=== PATIENT | female | born 1980 | race Caucasian/White ===

== ENCOUNTER → 2018-08-30 14:39 | Outpatient (CLI) | payer SELFPAY ==
[2018-08-29 17:23] VITALS: BMI 33.5
== END ==
PROVIDERS: Family Provider Internal Medicine; PCP Internal Medicine; Referring Provider Physician Assistant; Visit Provider Physician Assistant
DX: R50.9 Fever, unspecified (principal)
CPT/HCPCS: 87081

== ENCOUNTER → 2019-03-27 18:02 | Outpatient (CLI) | payer SELFPAY ==
[2019-03-27 10:21] VITALS: BMI 33.5
[2019-03-31 12:42] LABS: HPV APTIMA, High Risk Negative (Negative)
== END ==
PROVIDERS: Referring Provider Obstetrics & Gynecology; Visit Provider Obstetrics & Gynecology
DX: Z12.4 Encounter for screening for malignant neoplasm of cervix (principal)
CPT/HCPCS: 87624; 88175; G0145

== ENCOUNTER → 2019-03-31 09:56 | Outpatient (CLI) | payer SELFPAY ==
[2019-03-27 10:21] VITALS: BMI 33.5
--- NOTE | 2019-03-31 10:16 | BI_ITS ---
MAMMOGRAPHY - BILATERAL SCREENING REASON FOR EXAM: Female, 38 years old. Routine annual screening examination. PERTINENT HISTORY: Non-contributory. TECHNIQUE: Digital bilateral breast debra (3D mammographic acquisition) in the CC and MLO projections. 2-D mediolateral oblique (MLO) and craniocaudad (CC) views of both breasts were obtained. CAD: Full Field Digital Mammography with Computer Added Detection was performed. COMPARISON: None. Baseline examination. FINDINGS: Breast Composition: The breasts are heterogeneously dense, which may obscure small masses. There are no dominant masses or suspicious calcifications. Small benign-appearing bilateral axillary No other significant abnormalities are identified. BI/SCREEN MAMM (CAD) W/DEBRA BILAT IMPRESSION: Negative screening mammogram. Yearly followup mammogram recommended. (A) ASSESSMENT CATEGORY: BIRADS Category 2: Benign. A letter regarding these results will be sent to the patient by the facility within 30 days. Approximately 10% of breast cancers are not detected by mammography. A normal mammogram should not delay biopsy of a clinically suspicious abnormality. [id number] Electronically Signed: Joe Núñez, at 11:25 EDT , Service support ,
== END ==
PROVIDERS: Referring Provider Obstetrics & Gynecology; Visit Provider Obstetrics & Gynecology
DX: Z12.31 Encounter for screening mammogram for malignant neoplasm of breast (principal)
CPT/HCPCS: 77063; 77067

== ENCOUNTER → 2020-05-06 | Outpatient (CLI) | payer SELFPAY ==
[2020-05-06 09:52] VITALS: BMI 33.5
[2020-05-06 10:54] LABS: Absolute Lymphocyte Count 2.37 X10^3/uL (0.83-4.51); Absolute Neutrophil Count 3.2 X10^3/uL (2.0-7.7); Basophil# 0.03 X10^3/uL; Basophil% 0.4 % (0-1); Eosinophil# 0.62 X10^3/uL; Eosinophils% 9.3 % (0-5); Hematocrit 42.1 % (37-47); Hemoglobin 13.6 g/dL (12.0-15.0); Lymphocyte # 2.37 X10^3/ul (4.0); Lymphocyte % 35.5 % (19-41); Mean Corp Hgb Conc 32.3 g/dL (32-36); Mean Corpuscular Volume 89.8 fL (81-99); Mean Platelet Vol. 9.1 fl (6.2-12.0); Monocyte# 0.42 X10^3/uL; Monocyte% 6.3 % (0-10); NRBC Flagged by Analyzer 0 % (0-5); Neutrophil # 3.22 X10^3/uL (2.7-7.7); Neutrophil % 48.2 % (47-70); Platelet Count 239 K/mm3 (150-450); RBC Distribution Width CV 12.3 % (11.6-14.6); RBC Distribution Width SD 39.9 fl (35.1-43.9); Red Blood Count 4.69 M/mm3 (4.2-5.4); White Blood Count 6.7 K/mm3 (4.4-11.0)
[2020-05-06 11:18] LABS: ALB/GLOB Ratio 1.1 RATIO (0.9-2.4); AST(SGOT) 22 U/L (15-37); Alanine Aminotransfer ALT/SGPT 32 U/L (13-56); Albumin, Serum 3.9 g/dL (3.2-5.0); Alkaline Phosphatase 57 U/L (45-117); Anion Gap 2 (5-15); BUN 16 mg/dL (7-18); BUN/Creat Ratio 20.8 RATIO (10-20); Calcium,Total 8.7 mg/dL (8.5-10.1); Chloride 104 mmol/L (98-107); Cholesterol 194 mg/dL (200); Creatinine, Serum 0.77 mg/dL (0.55-1.02); EST Glomerular Filtration Rate 88 mL/min (>60); Est Glom Filt Rate - Afr Amer 106 mL/min (>60); Globulin 3.7 g/dL (2.2-4.2); Glucose 91 mg/dL (74-106); High Density Lipoprotein 53 mg/dL; Potassium 3.6 mmol/L (3.5-5.1); Protein, Total 7.6 g/dL (6.4-8.2); Sodium Level 136 mmol/L (136-145); Thyroid Stim Hormone (TSH) 1.67 uIU/mL (0.358-3.74); Triglycerides 170 mg/dL; Very Low Density Lipoprotein 34 mg/dL (5-40)
[2020-05-08 08:15] LABS: Vitamin D,25 Hydroxy 27.2 ng/mL
== END | disposition home or self-care (01) ==
LOC: PAVLAB 10:43
PROVIDERS: Referring Provider Obstetrics & Gynecology; Visit Provider Obstetrics & Gynecology
DX: Z13.29 Encounter for screening for other suspected endocrine disorder (principal); Z13.21 Encounter for screening for nutritional disorder; Z13.220 Encounter for screening for lipoid disorders; Z01.419 Encounter for gynecological examination (general) (routine) without abnormal findings
CPT/HCPCS: 36415; 80053; 80061; 82306; 84443; 85025

== ENCOUNTER → 2020-06-17 11:15 | Outpatient (CLI) | payer SELFPAY ==
[2020-05-06 09:52] VITALS: BMI 33.5
--- NOTE | 2020-06-17 11:19 | BI_ITS ---
MAMMOGRAPHY - BILATERAL SCREENING REASON FOR EXAM: Female, 40 years old. Routine annual screening examination. PERTINENT HISTORY: Non-contributory. TECHNIQUE: Digital bilateral breast debra (3D mammographic acquisition) in the CC and MLO projections. 2-D mediolateral oblique (MLO) and craniocaudad (CC) views of both breasts were obtained. CAD: Full Field Digital Mammography with Computer Added Detection was performed. COMPARISON: Comparison is made with prior study dated 03/31/2019. FINDINGS: Breast Composition: The breasts are heterogeneously dense, which may obscure small masses. There are no dominant masses or suspicious calcifications. Stable small benign-appearing bilateral axillary lymph nodes. No other significant abnormalities are identified. There has been no significant change since the prior study. BI/SCREEN MAMM (CAD) W/DEBRA BILAT IMPRESSION: Stable bilateral screening mammogram. Yearly follow-up mammogram recommended. (A) ASSESSMENT CATEGORY: BIRADS Category 2: Benign. A letter regarding these results will be sent to the patient by the facility within 30 days. Approximately 10% of breast cancers are not detected by mammography. A normal mammogram should not delay biopsy of a clinically suspicious abnormality. [id number] Electronically Signed: Joe Núñez, at 12:21 EST , Service support ,
== END ==
PROVIDERS: Referring Provider Obstetrics & Gynecology; Visit Provider Obstetrics & Gynecology
DX: Z12.31 Encounter for screening mammogram for malignant neoplasm of breast (principal)
CPT/HCPCS: 77063; 77067

== ENCOUNTER → 2022-01-14 | Outpatient (CLI) | payer OTHER, SELFPAY ==
[2022-01-14 12:23] LABS: Absolute Lymphocyte Count 2.57 X10^3/uL (0.83-4.51); Absolute Neutrophil Count 3.8 X10^3/uL (2.0-7.7); Basophil# 0.04 X10^3/uL; Basophil% 0.5 % (0-1); Eosinophils% 6.7 % (0-5); Hematocrit 43.8 % (37-47); Hemoglobin 14.1 g/dL (12.0-15.0); Lymphocyte # 2.57 X10^3/ul (0.83-4.51); Lymphocyte % 34.6 % (19-41); Mean Corp Hgb Conc 32.2 g/dL (32-36); Mean Corpuscular Hgb 29.1 pg (27.0-32.0); Mean Corpuscular Volume 90.3 fL (81-99); Mean Platelet Vol. 10.2 fl (6.2-12.0); Monocyte% 6.7 % (0-10); NRBC Flagged by Analyzer 0 % (0-5); Neutrophil % 51.2 % (47-70); Platelet Count 262 K/mm3 (150-450); RBC Distribution Width CV 12.1 % (11.6-14.6); Red Blood Count 4.85 M/mm3 (4.2-5.4); White Blood Count 7.4 K/mm3 (4.4-11.0)
[2022-01-14 12:46] LABS: AST(SGOT) 16 U/L (15-37); Alanine Aminotransfer ALT/SGPT 28 U/L (13-56); Albumin, Serum 3.7 g/dL (3.2-5.0); Alkaline Phosphatase 58 U/L (45-117); Anion Gap 7 (5-15); BUN 15 mg/dL (7-18); BUN/Creat Ratio 19.4 RATIO (10-20); Calcium,Total 9.1 mg/dL (8.5-10.1); Chloride 104 mmol/L (98-107); Cholesterol 193 mg/dL (200); Creatinine, Serum 0.78 mg/dL (0.55-1.02); EST Glomerular Filtration Rate 86 mL/min (>60); Est Glom Filt Rate - Afr Amer 105 mL/min (>60); Globulin 3.7 g/dL (2.2-4.2); Glucose 92 mg/dL (74-106); High Density Lipoprotein 48 mg/dL; Potassium 4.1 mmol/L (3.5-5.1); Protein, Total 7.4 g/dL (6.4-8.2); Sodium Level 138 mmol/L (136-145); Triglycerides 127 mg/dL; Very Low Density Lipoprotein 25 mg/dL (5-40)
== END | disposition home or self-care (01) ==
LOC: BIMLAB 09:09
PROVIDERS: PCP Internal Medicine; Referring Provider Internal Medicine; Visit Provider Internal Medicine
DX: Z00.00 Encounter for general adult medical examination without abnormal findings (principal)
CPT/HCPCS: 36415; 80053; 80061; 85025

== ENCOUNTER → 2022-08-12 | Outpatient (CLI) | payer OTHER, SELFPAY ==
--- NOTE | 2022-08-12 09:37 | BI_ITS ---
MAMMOGRAPHY - BILATERAL SCREENING REASON FOR EXAM: Female, 42 years old. Routine annual screening examination. PERTINENT HISTORY: Non-contributory. TECHNIQUE: Digital bilateral breast debra (3D mammographic acquisition) in the CC and MLO projections. 2-D mediolateral oblique (MLO) and craniocaudad (CC) views of both breasts were obtained. CAD: Full Field Digital Mammography with Computer Added Detection was performed. COMPARISON: Comparison is made with prior study 06/17/2020 and 03/31/2019. FINDINGS: Breast Composition: The breasts are heterogeneously dense, which may obscure small masses. There are no dominant masses or suspicious calcifications. Stable small benign-appearing bilateral axillary lymph nodes. No other significant abnormalities are identified. There has been no significant change since the prior study. BI/SCRN MAMM (CAD)W/DEBRA BILAT IMPRESSION: Stable bilateral screening mammogram. Yearly follow-up mammogram recommended. (A) ASSESSMENT CATEGORY: BIRADS Category 2: Benign. A letter regarding these results will be sent to the patient by the facility within 30 days. Approximately 10% of breast cancers are not detected by mammography. A normal mammogram should not delay biopsy of a clinically suspicious abnormality. [id number] Electronically Signed: Joe Núñez MD at 11:41 EST ,
== END | disposition home or self-care (01) ==
LOC: OPBI 09:35
PROVIDERS: PCP Internal Medicine; Visit Provider Internal Medicine
DX: Z12.31 Encounter for screening mammogram for malignant neoplasm of breast (principal)
CPT/HCPCS: 77063; 77067

== ENCOUNTER → 2023-02-25 | Outpatient (CLI) | payer OTHER, SELFPAY ==
[2023-02-25 08:27] LABS: Mucous, Urine 0 SEEN /hpf (<or=2+); Red Blood Cells-Urine 0 SEEN /hpf (0-5)
[2023-02-25 10:28] LABS: Color, Urine Yellow (Yellow); Glucose, Dipstick Normal (Normal); Ketone-Dipstick Negative (Negative); Leukocyte Esterase-Dipstick 500 /ul (Negative); Nitrite-Dipstick Positive (Negative); Occult Blood-Urine 25 /ul (Negative); Protein-Dipstick Negative (Negative); Urine Clarity Clear (Clear); Urine Urobilinogen 1 mg/dl (Normal)
[2023-02-25 10:54] LABS: Urine Bilirubin Dipstick 1 mg/dL (Negative)
[2023-02-25 11:09] LABS: Bacteria 1+ /hpf (None Seen); Squamous Epithelial Cells - UA 0-5 SEEN /hpf (5-10); White Blood Cells 10-25 SEEN /hpf (0-5)
== END | disposition home or self-care (01) ==
PROVIDERS: PCP Internal Medicine; Referring Provider Physician Assistant Surgical; Visit Provider Physician Assistant Surgical
DX: R30.0 Dysuria (principal)
CPT/HCPCS: 81001; 87086; 87088

== ENCOUNTER → 2023-05-20 | Outpatient (CLI) | payer OTHER, SELFPAY ==
[2023-05-20 10:18] LABS: Absolute Lymphocyte Count 2.68 X10^3/uL (0.83-4.51); Absolute Neutrophil Count 3.4 X10^3/uL (2.0-7.7); Basophil# 0.03 X10^3/uL; Basophil% 0.4 % (0-1); Eosinophil# 0.41 X10^3/uL; Eosinophils% 5.8 % (0-5); Hematocrit 43.5 % (37-47); Hemoglobin 14.3 g/dL (12.0-15.0); Lymphocyte # 2.68 X10^3/ul (0.83-4.51); Mean Corp Hgb Conc 32.9 g/dL (32-36); Mean Corpuscular Hgb 29.2 pg (27.0-32.0); Mean Corpuscular Volume 88.8 fL (81-99); Mean Platelet Vol. 9.5 fl (6.2-12.0); Monocyte# 0.48 X10^3/uL; Monocyte% 6.8 % (0-10); NRBC Flagged by Analyzer 0 % (0-5); Neutrophil # 3.44 X10^3/uL (2.7-7.7); Neutrophil % 48.9 % (47-70); Platelet Count 315 K/mm3 (150-450); RBC Distribution Width CV 12.2 % (11.6-14.6); RBC Distribution Width SD 39.8 fl (35.1-43.9); White Blood Count 7.1 K/mm3 (4.4-11.0)
[2023-05-22 06:44] LABS: Estradiol 29.1 pg/mL; Follicle Stimulating Hormone 14.3 mIU/mL
[2023-05-24 03:06] LABS: 17-Hydroxyprogesterone 33 ng/dL (.)
[2023-05-26 19:07] LABS: DHEA Sulfate 11.8 ug/dL (57.3-279.2); Testosterone Free <0.2 pg/mL (0.0-4.2)
== END | disposition home or self-care (01) ==
LOC: PAVLAB 09:58
PROVIDERS: PCP Internal Medicine; Referring Provider Obstetrics & Gynecology; Visit Provider Obstetrics & Gynecology
DX: N93.9 Abnormal uterine and vaginal bleeding, unspecified (principal)
CPT/HCPCS: 36415; 82627; 82670; 83001; 83498; 84146; 84402; 84443; 85025; 82626

== ENCOUNTER → 2023-05-28 | Outpatient (CLI) | payer OTHER, SELFPAY ==
--- NOTE | 2023-05-28 12:54 | US_ITS ---
STUDY: ULTRASOUND OF THE FEMALE PELVIS - COMPLETE REASON FOR EXAM: Female, 43 years old. AUB LMP: 05/04/2023 TECHNIQUE: Transabdominal and Transvaginal TECHNICAL QUALITY: Adequate. COMPARISON: None. FINDINGS: The uterus is anteverted and is in a midline position. The uterus measures 8.4 x 6.3 x 4.8 cm. There is a Nabothian cyst of the cervix. The endometrium measures 12 mm in thickness, and is hyperechoic. There is no demonstrated endometrial mass. There is no demonstrated myometrial mass. I.U.D. - The patient does not have an I.U.D. The right ovary is visualized. The right ovary measures 4.5 x 3.9 x 2.8 cm. 3.2 cm simple cyst right ovary consistent with a corpus luteum cyst. There is no visualized right adnexal mass or complex lesion. There is normal arterial and normal venous vascularity. The left ovary is visualized. The left ovary measures 3.1 x 2.4 x 2.5 cm. There is no left ovarian cyst or ovarian mass. There is no visualized left adnexal mass or complex lesion. There is normal arterial and normal venous vascularity. There is no fluid in the cul-de-sac. The pre void volume of the bladder was 480 ml. The post void volume of the bladder was ml. Polycystic ovary disease: No. US/Pelvic w/ Transvaginal IMPRESSION: 3.2 cm right ovarian corpus luteum cyst. Electronically Signed: Matthew Cobb MD at 21:48 EDT ,
== END | disposition home or self-care (01) ==
LOC: US 12:54
PROVIDERS: PCP Internal Medicine; Referring Provider Obstetrics & Gynecology; Visit Provider Obstetrics & Gynecology
DX: N93.9 Abnormal uterine and vaginal bleeding, unspecified (principal)
CPT/HCPCS: 76830; 76856

== ENCOUNTER → 2024-05-12 | Outpatient (CLI) | payer OTHER, SELFPAY ==
[2024-05-12 12:12] LABS: Absolute Lymphocyte Count 2.08 X10^3/uL (0.83-4.51); Absolute Neutrophil Count 2.9 X10^3/uL (2.0-7.7); Basophil# 0.04 X10^3/uL; Basophil% 0.7 % (0-1); Eosinophil# 0.41 X10^3/uL; Hematocrit 43.7 % (37-47); Hemoglobin 13.7 g/dL (12.0-15.0); Lymphocyte # 2.08 X10^3/ul (0.83-4.51); Lymphocyte % 35.4 % (19-41); Mean Corp Hgb Conc 31.4 g/dL (32-36); Mean Corpuscular Volume 92.6 fL (81-99); Mean Platelet Vol. 9.8 fl (6.2-12.0); Monocyte# 0.42 X10^3/uL; Monocyte% 7.1 % (0-10); NRBC Flagged by Analyzer 0 % (0-5); Neutrophil # 2.91 X10^3/uL (2.7-7.7); Neutrophil % 49.5 % (47-70); Platelet Count 264 K/mm3 (150-450); RBC Distribution Width CV 12.4 % (11.6-14.6); RBC Distribution Width SD 42.2 fl (35.1-43.9); Red Blood Count 4.72 M/mm3 (4.2-5.4); White Blood Count 5.9 K/mm3 (4.4-11.0)
[2024-05-12 13:07] LABS: AST(SGOT) 15 U/L (15-37); Alanine Aminotransfer ALT/SGPT 27 U/L (13-56); Albumin, Serum 3.7 g/dL (3.2-5.0); Alkaline Phosphatase 58 U/L (45-117); Anion Gap 4 (5-15); BUN 18 mg/dL (7-18); Calcium,Total 9.5 mg/dL (8.5-10.1); Chloride 108 mmol/L (98-107); Cholesterol 198 mg/dL (200); EST Glomerular Filtration Rate 72 mL/min (>60); Est Glom Filt Rate - Afr Amer 87 mL/min (>60); Globulin 3.6 g/dL (2.2-4.2); Glucose 98 mg/dL (74-106); High Density Lipoprotein 56 mg/dL; Potassium 5.2 mmol/L (3.5-5.1); Protein, Total 7.3 g/dL (6.4-8.2); Sodium Level 139 mmol/L (136-145); Triglycerides 125 mg/dL; Very Low Density Lipoprotein 25 mg/dL (5-40)
== END | disposition home or self-care (01) ==
LOC: BIMLAB 09:09
PROVIDERS: PCP Internal Medicine; Referring Provider Nurse Practitioner; Visit Provider Nurse Practitioner
DX: Z00.00 Encounter for general adult medical examination without abnormal findings (principal)
CPT/HCPCS: 36415; 80053; 80061; 85025

== ENCOUNTER → 2024-05-17 | Outpatient (CLI) | payer OTHER, SELFPAY ==
--- NOTE | 2024-05-17 08:16 | BI_ITS ---
MAMMOGRAPHY - BILATERAL SCREENING 3-D TOMOSYNTHESIS REASON FOR EXAM: Female, 44 years old. breast cancer screening PERTINENT HISTORY: No significant family history. TECHNIQUE: 2-D mammograms and 3-D Tomosynthesis of the breast (s) were performed. CAD was performed. COMPARISON: 08/12/2022 FINDINGS: The breast composition is composed of scattered fibroglandular density. Scattered benign calcifications are seen. No dense spiculated masses or suspicious microcalcifications are identified. No architectural distortion is identified. There is no skin thickening or retraction. There has been no significant change since the prior study. BI/SCRN MAMM (CAD)W/DEBRA BILAT IMPRESSION: No mammographic signs of malignancy. Routine yearly mammograms recommended. ASSESSMENT CATEGORY: BIRADS Category 1: Negative. A letter regarding these results will be sent to the patient by the facility within 30 days. FOLLOW UP RECOMMENDATION: Yearly follow up mammogram recommended. (A) Approximately 10% of breast cancers are not detected by mammography. A normal mammogram should not delay biopsy of a clinically suspicious abnormality. Electronically Signed: Matthew Cobb MD at 9:39 EDT ,
== END | disposition home or self-care (01) ==
LOC: OPBI 08:15
PROVIDERS: PCP Internal Medicine; Referring Provider Nurse Practitioner; Visit Provider Nurse Practitioner
DX: Z12.31 Encounter for screening mammogram for malignant neoplasm of breast (principal)
CPT/HCPCS: 77063; 77067

== ENCOUNTER → 2024-06-07 | Outpatient (CLI) | payer OTHER, SELFPAY ==
[2024-06-07 12:12] LABS: Prothrombin Time (Protime)PT. 13.5 SECONDS (11.7-14.9)
[2024-06-07 12:13] LABS: Partial Thromboplast Time 28.2 Seconds (24.1-36.2)
[2024-06-07 12:43] LABS: Potassium 4.1 mmol/L (3.5-5.1)
== END | disposition home or self-care (01) ==
LOC: BIMLAB 10:43
PROVIDERS: PCP Internal Medicine; Referring Provider Plastic Surgery; Visit Provider Plastic Surgery
DX: M25.519 Pain in unspecified shoulder (principal); R51.9 Headache, unspecified; N64.81 Ptosis of breast; G89.29 Other chronic pain; E87.5 Hyperkalemia; N62 Hypertrophy of breast
CPT/HCPCS: 36415; 84132; 85610; 85730

== ENCOUNTER → 2024-06-19 | Outpatient (CLI) | payer OTHER, SELFPAY ==
[2024-06-19 12:50] LABS: Absolute Lymphocyte Count 2.04 X10^3/uL (0.83-4.51); Absolute Neutrophil Count 3.2 X10^3/uL (2.0-7.7); Basophil# 0.03 X10^3/uL; Basophil% 0.5 % (0-1); Eosinophil# 0.28 X10^3/uL; Eosinophils% 4.7 % (0-5); Hematocrit 41.6 % (37-47); Hemoglobin 13.2 g/dL (12.0-15.0); Lymphocyte # 2.04 X10^3/ul (0.83-4.51); Lymphocyte % 34.2 % (19-41); Mean Corp Hgb Conc 31.7 g/dL (32-36); Mean Corpuscular Hgb 28.7 pg (27.0-32.0); Mean Corpuscular Volume 90.4 fL (81-99); Mean Platelet Vol. 9.8 fl (6.2-12.0); Monocyte# 0.37 X10^3/uL; Monocyte% 6.2 % (0-10); NRBC Flagged by Analyzer 0 % (0-5); Neutrophil # 3.23 X10^3/uL (2.7-7.7); Neutrophil % 54.2 % (47-70); Platelet Count 253 K/mm3 (150-450); RBC Distribution Width CV 12.3 % (11.6-14.6); RBC Distribution Width SD 40.2 fl (35.1-43.9)
[2024-06-19 13:09] LABS: ALB/GLOB Ratio 1.1 RATIO (0.9-2.4); AST(SGOT) 17 U/L (15-37); Alanine Aminotransfer ALT/SGPT 24 U/L (13-56); Albumin, Serum 3.7 g/dL (3.2-5.0); Alkaline Phosphatase 56 U/L (45-117); Anion Gap 4 (5-15); BUN 18 mg/dL (7-18); BUN/Creat Ratio 23.7 RATIO (10-20); Calcium,Total 9.2 mg/dL (8.5-10.1); Chloride 107 mmol/L (98-107); Creatinine, Serum 0.76 mg/dL (0.55-1.02); EST Glomerular Filtration Rate 88 mL/min (>60); Est Glom Filt Rate - Afr Amer 106 mL/min (>60); Globulin 3.5 g/dL (2.2-4.2); Glucose 99 mg/dL (74-106); Protein, Total 7.2 g/dL (6.4-8.2); Sodium Level 137 mmol/L (136-145)
== END | disposition home or self-care (01) ==
LOC: BIMLAB 09:18
PROVIDERS: PCP Internal Medicine; Visit Provider Internal Medicine
DX: Z01.818 Encounter for other preprocedural examination (principal)
CPT/HCPCS: 36415; 80053; 85025

== ENCOUNTER 2024-07-07 05:57 | Day surgery (SDC) | payer OTHER, SELFPAY ==
[2024-07-07] VITALS (14 sets, daily range): BP systolic 94–118; BP diastolic 57–85; PULSE 64–98; RESP 16–18; TEMP 36.1–37.1; O2SAT 92–100; BMI 37.1
[2024-07-07] MEDS: Lactated Ringers 1,000 ML 15 ML IV (06:52)
[2024-07-07 07:03] LABS: Internal QC Validated? YES +Cl - CLEAR BKGD; Pregnancy, Urine Negative Negative
--- NOTE | 2024-07-07 07:15 | PCM.HP.BLA ---
History and Physical Date of Admission: 07/07/24 The patient is examined and there are no changes to the H&P from 06/19/24. Informed consent obtained for bilateral breast reduction. The patient is marked in the pre-op holding area. No gaurantees are made of the final size. The patient agrees and wishes to proceed with bilateral breast reduction. Assessment & Plan Assessment/Plan (1) Breast hypertrophy: (2) Back problem: PLAN: Plan Patient for bilateral breast reduction.
--- NOTE | 2024-07-07 07:16 | PRE.ANES_ITS ---
ASA Classification* ASA Classification ASA Classification: 3 Assessment & Plan Anesthesia* Anesthesia Assessment Anesthesia Assessment: Discussed sedation and/or anesthesia options, risks, benefits, and alternatives with patient/parents/legal guardian/POA. Questions invited. The patient/parents/legal guardian/POA seems to understand and agrees to proceed with anesthesia plan. Reviewed the physical assessment, medical history, allergy history and patient home medications list prior to surgery/procedure/anesthetic and documented any changes. Performed airway and anesthesia risk assessments. Anesthesia Type Anesthesia Type: General Anesthesia Focused Assessment* Temperature: 98.7 F Pulse Rate: 77 Blood Pressure: 118/85 Respiratory Rate: 16 Pulse Ox: 100 Airway Assessment Mouth opens: >3 cm Mallampati Score: II Focused Labs Anesthesia Preop lab: CBC WBC 6.0 K/mm3 (4.4-11.0) 06/19/24 09:19 RBC 4.60 M/mm3 (4.2-5.4) 06/19/24 09:19 Hgb 13.2 g/dL (12.0-15.0) 06/19/24 09:19 Hct 41.6 % (37-47) 06/19/24 09:19 Plt Count 253 K/mm3 (150-450) 06/19/24 09:19 CHEMISTRY Potassium 4.0 mmol/L (3.5-5.1) 06/19/24 09:19 Sodium 137 mmol/L (136-145) 06/19/24 09:19 BUN 18 mg/dL (7-18) 06/19/24 09:19 Creatinine 0.76 mg/dL (0.55-1.02) 06/19/24 09:19 Glucose 99 mg/dL (74-106) 06/19/24 09:19 TSH 2.50 uIU/mL (0.358-3.74) 05/20/23 10:02 COAG PT 13.5 SECONDS (11.7-14.9) 06/07/24 10:43 Urine Test Negative Negative 07/07/24 06:28 Pre-Assessment Diagnosis/Proposed Procedure Planned Operative Procedure(s): BILAT BREAST REDUCTION Anesthesia History 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 When Was Last Pacemaker Check QUESTION #4 FULL TEXT: You/Your Family Experience fever (hyperthermia) with Anesthesia Last Oral Intake Last Oral intake: Last Oral Intake NPO since 20:00 07/07/24 06:34 Meds taken in AM with sips of Yes 07/07/24 06:34 water? Meds patient instructed to take am of surgery PONV PONV - semiconductor wafers etcher stripper: PONV - semiconductor wafers etcher stripper Female Yes 06/23/24 10:00 HX of Motion Sickness No 06/23/24 10:00 HX of N/V After Surgery No 06/23/24 10:00 Non-Smoker Yes 06/23/24 10:00 Duration of Surgery greater Yes 06/23/24 10:00 than 60 minutes Number of Risk Factors 3 06/23/24 10:00 PONV Score Moderate Risk 06/23/24 10:00 Height & Weight Height & Weight: Anesthesia: Height & Weight Height 5 ft 4 in 07/07/24 06:34 Weight: 98.1 kg 07/07/24 06:34 Body Mass Index (BMI) 37.1 07/07/24 06:34 Respiratory Assessment Respiratory Assessment - semiconductor wafers etcher stripper: Respiratory Tract Infection Hx - semiconductor wafers etcher stripper Hx Respiratory Tract Infection No 06/23/24 10:00 STOP Sleep Apnea STOP Sleep Apnea - semiconductor wafers etcher stripper: STOP Sleep Apnea - semiconductor wafers etcher stripper Hx Hypertension No 06/23/24 10:00 Hx Sleep Apnea No 06/23/24 10:00 CPAP BIPAP Do you snore loudly (louder No 06/23/24 10:00 than talking or can be heard Do you often feel tired/ No 06/23/24 10:00 fatigued/ sleepy during daytime? Has anyone observed you stop No 06/23/24 10:00 breathing during sleep? STOP Results Negative 06/23/24 10:00 QUESTION #5 FULL TEXT : Do you snore loudly (louder than talking or can be heard through closed doors)? 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 Specify any problems Hx of Preganancy in last 3 No 06/23/24 10:00 Months Nurse Filling Out Transfusion DSCHRIBER 06/23/24 10:00 & Questions: Date: 06/23/24 06/23/24 10:00 Time: 10:01 06/23/24 10:00 Patient unable to answer at this time (ie. confused, unrespo /Reproduction History /Reproductive History - semiconductor wafers etcher stripper: /Reproductive Hx- semiconductor wafers etcher stripper Hx Now No 06/23/24 10:00 Gestational Age (in weeks): EDC: Hx Hx Para Hx Section SAB No 06/23/24 10:00 Active Medications Active Medications: Current Medications Generic Name Dose Route Start Last Admin Trade Name Freq PRN Reason Stop Dose Admin Epinephrine HCl 30 mg 07/07/24 06:45 Epinephrine 30 Mg/30 Ml Vial OPERA.SITE X1 VIKAS Cefazolin Sodium 2 gm/ N/A 20 mls @ 400 mls/hr 07/07/24 07:30 IV 07/07/24 07:32 PREOP ONE Lactated Ringer's 1,000 mls @ 15 mls/hr 07/07/24 06:15 07/07/24 06:52 IV 07/12/24 19:34 15 mls/hr .Q48H VIKAS Administration Protocol PFSH Medical History Wears glasses Anemia Non-smoker Preoperative evaluation to rule out surgical contraindication Encounter to establish care Preventative health care COVID-19 Allergy/AdvReac Type Severity Reaction Status Date / Time dexamethasone AdvReac anxiety Verified 07/07/24 06:33 Family History Father Depression Anxiety Mother Melanoma Hyperlipidemia Uncle Heart disease Surgical History Hx of wisdom tooth extraction Social History Smoking Status: Never smoker alcohol intake: current details: social substance use type: does not use caffeine: Yes what type of physical activity do you participate in: walking frequency: 1-2 times per week seatbelt use: always do you feel safe at home: Yes additional social history: no asa, uses ibuprofen prn, no marijuana, no vaping, no edibles Review of Systems (Anesthesia) ROS Narrative System reviewed and no additional complaints, except as documented.
--- NOTE | 2024-07-07 07:30 | BR_PTH ---
PATIENT: ELIEZER PADRON LOC: [facility] [place][id number] AGE/SX: 44/F ROOM: RE07/07/[address]: Dr. Alyssa Hurst MD : 1980 BED: DIS: 07/07/2024 SPEC #: [id number] RECD: 07/07/24 13:22 STATUS: DARCY DELGADO #: [id number] DARRICK: 07/07/24 07:[address]: Alyssa Hurst DEPT: SURGICAL PATHOLOGY RECD BY: Coleman West ENTERED: 07/10/24 07:42 SP TYPE: MAMOPLASTY OTHR DR: Dr. Olive Gaitan MD Tissues: A - Left breast, NOS B - Right breast, NOS Procedures: Surgery Specimen Level IV HEADER OPERATION: Bilateral breast reduction PRE-OP DIAGNOSIS: Breast hypertrophy, back problem TISSUE SUBMITTED: A- Left breast tissue 502gm, B- Right breast tissue 514 gm MICROSCOPIC DIAGNOSIS A. Left breast, breast reduction mammoplasty: Fragments of benign breast tissue with focal minimal fibrocystic changes. Skin, no pathologic diagnosis. B. Right breast, breast reduction mammoplasty: Fragments of benign breast tissue with focal minimal fibrocystic changes. Skin, no pathologic diagnosis. SJ. 07/12/2024 MICROSCOPIC DESCRIPTION Slides are reviewed. GROSS DESCRIPTION A. Received in fixative is one container designated Left breast tissue. The specimen consists of multiple irregular fragments of rubbery yellow soft tissue. Several of the larger fragments contain adherent pink-workman skin with no skin lesions. The fragments range in size from <0.1 to 12.5 cm and in aggregate weigh 502 gm. Some of the larger fragments contain grossly unremarkable skin. Serial sections reveal yellow fatty tissue interrupted occasionally by dense white fibrous streaks. No distinct mass lesions are identified. Sock And Stocking Ironer sections are submitted in four cassettes after additional fixation. B. Received in fixative is one container designated Right breast tissue. The specimen consists of multiple irregular fragments of rubbery yellow soft tissue. Several of the larger fragments contain adherent pink-workman skin with no skin lesions. The largest fragment measures 12.0cm and in aggregate weigh 514 gm. Some of the larger fragments contain grossly unremarkable skin. Serial sections reveal yellow fatty tissue interrupted occasionally by dense white fibrous streaks. No distinct mass lesions are identified. Sock And Stocking Ironer sections are submitted in four cassettes after additional fixation.AM. 07/10/2024 TC:5 CPT:18206p6
[2024-07-07] MEDS: Cefazolin 2 GM in Syringe IV (07:35)
[2024-07-07] MEDS: Methylene Blue 1% 100 MG/10 ML VIAL (08:08)
[2024-07-07] MEDS: Gentamicin 80 MG/2 ML Vial (08:08)
[2024-07-07] MEDS: Bupivacaine 0.25% 30 ML Vial (11:53)
--- NOTE | 2024-07-07 12:49 | DCINST_ITS ---
Discharge Instructions Dressing / Incision Additional Dressing/Incision Instructions:: Follow the instructions given in the office. Keep your back elevated. Follow Up Care Please Follow Up With: Alyssa Hurst MD Test Results: Test results from this visit will be discussed in further detail at your follow- up appointment, if applicable. Discharge Plan Admission Attending Provider: Alyssa Hurst Primary Care Provider: Olive Gaitan Instructions Print Language: Croatian Discharge Orders/Prescriptions Referrals / Follow Up: Olive Gaitan MD [Primary Care Provider] - Disposition Disposition (needs filled in before D/C Order can be placed): Home, Self Care
--- NOTE | 2024-07-07 12:52 | OP.PCM_ITS ---
Operative Report (Standard) Operative Information Date of Procedure: 07/07/24 Pre-Operative Diagnosis: Bilateral mammary hypertrophy Back pain Post-Operative Diagnosis: same Surgery/Procedure Performed: Bilateral Breast Reduction (R-514gm; L-502gm) veterinary manager: Yes Senior Water Resources Engineer: Anny Jolley Tasks completed by surgical first assistant: Hemostasis: Electrocautery and Retracting Type of Anesthesia: General RN Documented Start/Stop Times: Operation Date: 07/07/24 07:30 Case Time Into Pre-Op 07/07/24 06:07 Out of Pre-Op 07/07/24 07:23 Anesthesia Start 07/07/24 07:27 Into Room 07/07/24 07:27 Procedure Start 07/07/24 08:08 Procedure End 07/07/24 12:46 Anesthesia End 07/07/24 12:49 Out of Room 07/07/24 12:49 Procedure Start Time: 08:08 Procedure Stop Time: 12:46 Select all DRAINS/GRAFTS/IMPLANTS that apply: None Estimated Blood Loss: 25cc Specimen collected: Yes Description of specimen(s) removed: Bilateral breast tissue Description of surgery: The patient presents today for consideration of breast reduction secondary to breast hypertrophy and chronic neck and back pain. No guarantees are made as to the final size. An informed consent is obtained. She is marked in the preop holding area prior to surgery. The patient is brought to the operating room and placed under general anesthesia in the supine position. Care is taken to pad all pressure points, insert a Lua catheter, a warming blanket, and sequential compression stockings. The breast and chest are prepped and draped in the usual sterile fashion. We initially began with incising the previously marked incisions. Following this, the pedicle is de-epithelialized. The medial and lateral inferior aspects of the breast are removed using argon coagulation. The pedicle is then from the upper flap and dissection continued cephalad maintaining the upper flap at least 2 cm in thickness. The flap is then trimmed in order to allow it to comfortably fit beneath the upper flap. The wound is irrigated with antibiotic solution and checked for meticulous hemostasis. Following this, the breast is infolded and tacked together using silk suture and skin clips. The incisions are then closed using a 3 oh STRATAFIX suture to approximate the incisions in 3 layers. Approximately 5 cm above the inframammary crease, the nipple areola is brought out and tacked in place with interrupted nylon suture. Further approximation and refinement of the closure is done with a running subcuticular strata fix suture. The identical procedure was performed on the opposite side. The quarter percent plain Marcaine is then injected along the incisions. Xeroform is placed on the incisions along with fluff gauze and she is placed in a surgery bra. All tissue removed and sent down as separate specimens to pathology. She tolerated the procedure well was taken to the recovery area in an awake and stable condition. Needle and sponge counts are correct. Surgical Findings: Fibrocystic changes and edematous tissue Complications Complications: No Admit VTE Documentation VTE Mechan Device Prophylaxis: SCD's
--- NOTE | 2024-07-07 12:53 | PCM.POST.ANE ---
Anesthesia: Postop Eval I Current Vital Signs Temperature: 97 F Pulse Rate: 76 Blood Pressure: 118/61 Respiratory Rate: 16 Pulse Ox: 100 Oxygen Delivery Method: Simple Mask Oxygen Flow Rate (L/min): 6 Assessment Airway patent: Yes Spontaneous unlabored respirations: Yes Mental status: Awake and Calm nausea: No Vomiting: No Anesthesia Complication: No Fluid Hydration Crystalloid volume administer (ml): 800 Total IV fluid infused: 800 Progress Note Anesthesia document: Postop Eval 1 completed: Yes
--- NOTE | 2024-07-07 13:34 | POSTOPAN2_ITS ---
Anesthesia Postop Eval I Sum Postop Eval Completion status Anesthesia document: Postop Eval 1 completed: Yes Anesthesia Postop Eval I Summary Anesthesia Postop Eval I Summary: Anesthesia Postop Eval I: Assessment Summary Airway patent Yes 07/07/24 12:54 MARINE TOWER OPERATOR.[email or web address] Spontaneous unlabored Yes 07/07/24 12:54 MARINE TOWER OPERATOR.FRED respirations Mental status Awake,Calm 07/07/24 12:54 MARINE TOWER OPERATOR.BARONOBBrad nausea No 07/07/24 12:54 MARINE TOWER OPERATOR.BARONOBBrad Vomiting No 07/07/24 12:54 MARINE TOWER OPERATOR.FRED Anesthesia Postop Eval I: Fluid Summary Crystalloid volume administer 800 07/07/24 12:54 MARINE TOWER OPERATOR.BARONOBY (ml) Colloids volume administered ( ml) Blood Product volume administered (ml) Total IV fluid infused 800 07/07/24 12:54 MARINE TOWER OPERATOR.FRED Anesthesia Postop Eval I: Summary Notes Anesthesia Complication No 07/07/24 12:54 MARINE TOWER OPERATOR.FRED Anesthesia Complication Comment: Post-operative progress note Anesthesia: Postop Eval II Evaluation Mental status: Awake Pain Level: 0 nausea: No Vomiting: No
--- NOTE | 2024-07-07 13:34 | PCM.POSTANE2 ---
Anesthesia Postop Eval I Sum Postop Eval Completion status Anesthesia document: Postop Eval 1 completed: Yes Anesthesia Postop Eval I Summary Anesthesia Postop Eval I Summary: Anesthesia Postop Eval I: Assessment Summary Airway patent Yes 07/07/24 12:54 DIRECTOR OPERATIONS.[email or web address] Spontaneous unlabored Yes 07/07/24 12:54 DIRECTOR OPERATIONS.FRED respirations Mental status Awake,Calm 07/07/24 12:54 DIRECTOR OPERATIONS.BARONOBBrad nausea No 07/07/24 12:54 DIRECTOR OPERATIONS.BARONOBBrad Vomiting No 07/07/24 12:54 DIRECTOR OPERATIONS.FRED Anesthesia Postop Eval I: Fluid Summary Crystalloid volume administer 800 07/07/24 12:54 DIRECTOR OPERATIONS.BARONOBY (ml) Colloids volume administered ( ml) Blood Product volume administered (ml) Total IV fluid infused 800 07/07/24 12:54 DIRECTOR OPERATIONS.FRED Anesthesia Postop Eval I: Summary Notes Anesthesia Complication No 07/07/24 12:54 DIRECTOR OPERATIONS.FRED Anesthesia Complication Comment: Post-operative progress note Anesthesia: Postop Eval II Evaluation Mental status: Awake Pain Level: 0 nausea: No Vomiting: No
== END 2024-07-07 16:29 | disposition home or self-care (01) ==
LOC: SDC 05:57 → AC 05:58
PROVIDERS: Anesthesiology; PCP Internal Medicine; Referring Provider Plastic Surgery; Visit Provider Plastic Surgery
PROC: 0H0U0ZZ Alteration of Left Breast, Open Approach (ICD-10-PCS; CPT 19318; principal; 2024-07-07 07:15)
DX: M54.9 Dorsalgia, unspecified (principal); N62 Hypertrophy of breast; N64.81 Ptosis of breast; M25.519 Pain in unspecified shoulder; G89.29 Other chronic pain
CPT/HCPCS: 19318; 00402; 81025; 88305; J2405

== ENCOUNTER → 2024-11-15 | Outpatient (CLI) | payer OTHER, SELFPAY ==
[2024-11-20 16:08] LABS: HPV APTIMA, High Risk Negative (Negative)
== END | disposition home or self-care (01) ==
LOC: LABSPEC 11:34
PROVIDERS: PCP Internal Medicine; Referring Provider Obstetrics & Gynecology; Visit Provider Obstetrics & Gynecology
DX: Z12.4 Encounter for screening for malignant neoplasm of cervix (principal)
CPT/HCPCS: 87624; 88175; G0145

== ENCOUNTER → 2025-05-31 | Outpatient (CLI) | payer OTHER, SELFPAY | END | disposition home or self-care (01) | LOC: LABSPEC 10:32 | PROVIDERS: PCP Internal Medicine; Referring Provider Physician Assistant Surgical; Visit Provider Physician Assistant Surgical | DX: R82.90 Unspecified abnormal findings in urine (principal) | CPT/HCPCS: 87086; 87088; 87186 ==